=== PATIENT | female | born 1935 | race Caucasian/White ===

== ENCOUNTER 2019-12-31 11:46 | Inpatient (IN) | payer MEDICARE, OTHER ==
[2019-12-31] MEDS ORDERED: Sodium Chloride 0.9% 1,000 ML IV SCH (12:30)
[2019-12-31] MEDS ORDERED: ceFAZolin 1 GM in Sodium Chloride 0.9% 50 ML IV ONE (13:00)
--- NOTE | 2019-12-31 13:14 | EDM.PDOC ---
ED HPI GENERAL MEDICAL PROBLEM - General Chief Complaint: General Stated Complaint: WOUND, WEAKNESS Time Seen by Provider: 12/31/19 13:05 Source of Information: Reports: Patient History Limitations: Reports: No Limitations - History of Present Illness INITIAL COMMENTS - FREE TEXT/NARRATIVE: chronic ulcer ( 8 months) in the right axilla in patient with history of breast cancer in the last 1 week has started oozing pus and redness surrounding the ulcer is getting worse now has pain in the area has been to see general surgeon , now has been scheduled to have biopsy of the site next week currently wound seems to be infected and painful Onset: Gradual Onset Date: 12/24/19 Duration: Waxing/Waning Location: Reports: Upper Extremity, Right (in right axilla) Quality: Reports: Ache, Dull Severity: Moderate Improves with: Reports: Cold Therapy Worsens with: Reports: Heat Therapy Context: Reports: Other Associated Symptoms: Reports: Loss of Appetite, Malaise - Related Data Allergies Allergy/AdvReac Type Severity Reaction Status Date / Time No Known Allergies Allergy Verified 06/21/18 11:35 Home Meds: Home Meds . [Unable to Verify Home Med List] 12/31/19 [History] ED ROS GENERAL - Review of Systems Review Of Systems: See Below Constitutional: Reports: Fever, Chills, Malaise, Weakness HEENT: Reports: No Symptoms Respiratory: Reports: No Symptoms Cardiovascular: Reports: No Symptoms Endocrine: Reports: No Symptoms GI/Abdominal: Reports: No Symptoms Musculoskeletal: Reports: No Symptoms Skin: Reports: Rash, Wound Neurological: Reports: No Symptoms, Dizziness Psychiatric: Reports: No Symptoms Hematologic/Lymphatic: Reports: No Symptoms ED EXAM, GENERAL - Physical Exam Exam: See Below Exam Limited By: No Limitations General Appearance: Alert, WD/WN, No Apparent Distress Ears: Normal External Exam Nose: Clear Rhinorrhea Throat/Mouth: Normal Oropharynx Head: Atraumatic, Normocephalic Neck: Supple, Non-Tender, Full Range of Motion Respiratory/Chest: Lungs Clear, Normal Breath Sounds, Other (spasm noted in the muscle in the right axilla) Cardiovascular: Normal Peripheral Pulses, Regular Rate, Rhythm, No JVD Back Exam: Full Range of Motion Extremities: Normal Inspection, Arm Pain, Increased Warmth Skin Exam: Lymphangitis, Wound/Incision (in right axilla about [id number] w pus from the wound site and surounding erythema) Course - Orders/Labs/Meds Orders: Active Orders 24 hr Category Date Time Status Sodium Chloride 0.9% [Normal Saline] 1,000 ml Med 12/31/19 12:30 Active IV ASDIRECTED ceFAZolin [Ancef] 1 gm Med 12/31/19 13:00 Active Sodium Chloride 0.9% [Normal Saline] 50 ml IV ONETIME Medication Orders Sodium Chloride (Normal Saline) 1,000 mls @ 999 mls/hr IV ASDIRECTED GUERDA Cefazolin Sodium 1 gm/ Sodium (Chloride) 50 mls @ 200 mls/hr IV ONETIME ONE Stop: 12/31/19 13:14 Labs: Laboratory Tests 12/31/19 12/31/19 12/31/19 Range/Units 12:30 12:30 12:30 WBC 11.7 (4.5-12.0) X10-3/uL RBC 3.67 (3.23-5.20) x10(6)uL Hgb 11.8 (11.5-15.5) g/dL Hct 34.1 (30.0-51.3) % MCV 93.1 (80-96) fL MCH 32.0 (27.7-33.6) pg MCHC 34.4 (32.2-35.4) g/dL RDW 12.7 (11.5-15.5) % Plt Count 291 (125-369) X10(3)uL MPV 7.6 (7.4-10.4) fL Neut % (Auto) 79.2 (46-82) % Lymph % (Auto) 7.2 L (13-37) % Rhea % (Auto) 7.4 (4-12) % Eos % (Auto) 5 (1.0-5.0) % Baso % (Auto) 1 (0-2) % Neut # (Auto) 9.3 H (1.6-8.3) # Lymph # (Auto) 0.8 (0.6-5.0) # Rhea # (Auto) 0.9 (0.0-1.3) # Eos # (Auto) 0.6 (0.0-0.8) # Baso # (Auto) 0.1 (0.0-0.2) # Sodium 137 (135-145) mmol/L Potassium 4.2 (3.5-5.3) mmol/L Chloride 100 (100-110) mmol/L Carbon Dioxide 28 (21-32) mmol/L BUN 17 (7-18) mg/dL Creatinine 0.7 (0.55-1.02) mg/dL Est Cr Clr Drug Dosing TNP Estimated GFR (MDRD) > 60 (>60) BUN/Creatinine Ratio 24.3 H (9-20) Glucose 96 (80-116) mg/dL Calcium 8.4 L (8.6-10.2) mg/dL Total Bilirubin 0.9 (0.1-1.3) mg/dL AST 38 H (5-25) IU/L ALT 35 (12-36) U/L Alkaline Phosphatase 180 H (56-112) IU/L C-Reactive Protein 13.9 H* (0.5-0.9) mg/dL Total Protein 7.3 (6.0-8.0) g/dL Albumin 2.4 L (3.2-4.6) g/dL Globulin 4.9 g/dL Albumin/Globulin Ratio 0.5 Meds: Medications Generic Name Dose Route Start Last Admin Trade Name Freq PRN Reason Stop Dose Admin Sodium Chloride 1,000 mls @ 999 mls/hr 12/31/19 12:30 Normal Saline IV ASDIRECTED [facility] Cefazolin Sodium 1 gm/ Sodium 50 mls @ 200 mls/hr 12/31/19 13:00 Chloride IV 12/31/19 13:14 ONETIME ONE Departure - Departure Time of Disposition: 13:20 Disposition: Admitted As Inpatient 65 Clinical Impression: 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 - Discharge Information *PRESCRIPTION DRUG MONITORING PROGRAM REVIEWED*: Not Applicable *COPY OF PRESCRIPTION DRUG MONITORING REPORT IN PATIENT MADY: Not Applicable Referrals: PCP,None [Primary Care Provider] - - My Orders Last 24 Hours: My Active Orders 12/31/19 12:30 Sodium Chloride 0.9% [Normal Saline] 1,000 ml IV ASDIRECTED 12/31/19 13:00 ceFAZolin [Ancef] 1 gm Sodium Chloride 0.9% [Normal Saline] 50 ml IV ONETIME - Assessment/Plan Last 24 Hours: My Active Orders 12/31/19 12:30 Sodium Chloride 0.9% [Normal Saline] 1,000 ml IV ASDIRECTED 12/31/19 13:00 ceFAZolin [Ancef] 1 gm Sodium Chloride 0.9% [Normal Saline] 50 ml IV ONETIME
[2019-12-31] MEDS ORDERED: Morphine 2 MG/ML Syringe IM ONE (13:20)
[2019-12-31] MEDS ORDERED: ceFAZolin 1 GM Vial IVPUSH ONE (13:30)
[2019-12-31] MEDS ORDERED: Ondansetron 4 MG Tab.DIS PO PRN (14:34)
[2019-12-31] MEDS: Acetaminophen/HYDROcodone 325-5 MG Tab PO PRN ×2 (15:38→20:02)
[2019-12-31] MEDS: Sodium Chloride 0.9% 1,000 ML IV SCH (16:17)
[2019-12-31] MEDS: Morphine 2 MG/ML Syringe IVPUSH PRN (16:22)
[2019-12-31] MEDS ORDERED: fentaNYL 12 MCG/HR Transdermal Patch TRDERM SCH (17:00)
--- NOTE | 2019-12-31 18:01 | HP ---
ADMISSION DATE: 12/31/2019 CHIEF COMPLAINT: Axillary pain and infection. HISTORY OF PRESENT ILLNESS: Kiarra is an 84-year-old woman from [place] with a history of breast mastectomy on the right side in 1981. This was followed with radiation treatment and chemotherapy and eventually healed up and she did very well. Ever since that time, she has had occasional twinges of pain that are sometimes pleuritic in nature, but never that bothersome. For the past few weeks, however, she has had soreness in the anterior chest. She was in to her doctor at [facility] and referrals made. She saw Dr. Fallon, who sent her up to the Wound [facility] in [place], who sent her to Dr. Gutierrez, who then sent her in to Radiology for upcoming CT-guided needle biopsy. This is scheduled for 9 a.m. Tuesday. This is apparently going to be of a suspicious mass in the right lung. CT of the chest also showed destruction of a rib and much soft tissue swelling and deformity in the area of the sore on the right anterior axillary area. She has a lot of pain in the upper area when she moves, takes a deep breath, etc. PAST MEDICAL HISTORY: She is status post appendectomy, T and A. She is one, para one, with normal deliveries. She has she has never had jaundice, hepatitis, or blood transfusions. She had a coronary stent in 1998 that was a dramatic episode requiring resuscitation and a [facility] from [place] to [place] where she had immediate one vessel angioplasty with stent placement. She has subsequently done well from a cardiac standpoint, but over the past year, she has developed more dyspnea on exertion and she was hospitalized in [facility] in September 2019 for shortness of breath and subsequently has been referred to Cardiology for followup. The patient also has a history of a compression fracture in the summer of 2018, and she has chronic neck pain. She has had hyperlipidemia, chronic allergic rhinitis, osteoporosis, and hypertension. MEDICATIONS: 1. Aspirin 325 mg daily. 2. Lipitor 10 mg at bedtime. 3. Vitamin D 25 mcg daily. 4. Clobetasol cream p.r.n. 5. Flonase p.r.n. 6. Boniva 150 mg every month. 7. Ibuprofen p.r.n. 8. Claritin 10 mg daily. 9. Lorazepam 0.5 mg t.i.d. p.r.n. 10.Metoprolol 25 mg b.i.d. 11.Tramadol 50 mg every 6 hours p.r.n. ALLERGIES: Zetia caused heartburn. Prednisone caused nausea. HABITS: Nonsmoker, nondrinker. FAMILY HISTORY: The patient was in 2005. She and her ranched at [place], [place], for 30 years. She was born in [place]. Six years ago, she was convinced by her son to move to [place] to be near him in [place]. He subsequently was transferred with his job to [facility] and she resides at [address] [place] [address], [address]. REVIEW OF SYSTEMS: GENERAL: No seizures, syncope, or recent significant weight change. SKIN: Positive for the sore on the right anterior axillary area. No other rash is noted. HEENT: No recent change in hearing, although she says she has significant hearing loss. Vision is stable. She wears glasses. No sore throat. RESPIRATORY: No significant cough or dyspnea. No exertional-type chest pain or palpitations. GASTROINTESTINAL: No abdominal pain, nausea, or diarrhea. GENITOURINARY: No hematuria. MUSCULOSKELETAL: She does get occasional swelling of her feet and ankles. PHYSICAL EXAMINATION: GENERAL: She is alert and a good historian. She does wince with pain with respirations on movement. VITAL SIGNS: Blood pressure 169/54, pulse 90 and regular, respirations 18, O2 saturation 93% on room air, weight 126 pounds, temperature 99.1. SKIN: Shows an irregular bilobed 2 x 4 cm area of ulceration anterior axillary area. There is significantly thickened skin around this out to about a 6-8 cm radius with tenderness throughout and tenderness to the chest wall all about this area. Left side is normal. She is status post mastectomy with no residual mass noted on the right side. HEENT: Shows pupils equal, and reactive. Oropharynx is clear. Mouth dry. LUNGS: Clear to the bases. HEART: Regular without murmur or gallop. ABDOMEN: Soft and nontender. EXTREMITIES: Show 1+ edema at the posterior malleoli. Intact dorsalis pedis pulses. Motor exam is symmetric with the exception of limited movement of her right arm because of pain. LABORATORY: White count 36[address], hemoglobin 11.8, BUN 17, creatinine 0.7. Alkaline phosphatase 180, CRP 13.9. Urinalysis; 5-10 red cells, no white cells. Review of the CT scan revealed a mass in the right lung with pleural-based densities consistent with primary or metastatic disease and an inflamed area of soft tissue skin with rib destruction, right upper anterior chest. ASSESSMENT: An 84-year-old woman with: 1. Painful open ulceration right anterior axillary area with adjacent rib destruction consistent with metastatic disease. 2. Multiple pleural-based right-sided lung nodules, now scheduled for biopsy in 2 days. 3. Remote history of breast cancer with mastectomy, radiation, and chemo in 1981. 4. Mild chronic congestive heart failure. 5. Arteriosclerotic heart disease with history of emergent angioplasty of a single vessel in 1998. 6. Osteoporosis with history of compression fracture. 7. Chronic neck pain consistent with osteoarthritis. PLAN: Culture is taken of the axillary wound. She is started on IV Ancef. We will provide pain control for her and plan to assist her in keeping her appointment for needle biopsy in [place], Tuesday. We will continue to provide palliative care measures for her underlying likely metastatic disease. /[id number] MACK/ELOY
[2019-12-31] MEDS ORDERED: ceFAZolin 1 GM in Sodium Chloride 0.9% 50 ML IV SCH (20:00)
[2019-12-31] MEDS: ceFAZolin 1 GM Vial IVPUSH SCH (21:39)
[2020-01-01] MEDS: Acetaminophen/HYDROcodone 325-5 MG Tab PO PRN ×5 (00:13→16:28)
[2020-01-01] MEDS: Sodium Chloride 0.9% 1,000 ML IV SCH ×2 (04:32→17:42)
[2020-01-01] MEDS: ceFAZolin 1 GM Vial IVPUSH SCH (06:00)
[2020-01-01] MEDS: Morphine 2 MG/ML Syringe IVPUSH PRN (08:37)
[2020-01-01] MEDS ORDERED: Morphine 2 MG/ML Syringe IVPUSH PRN (10:07)
[2020-01-01] MEDS ORDERED: fentaNYL 25 MCG/HR Transdermal Patch TRDERM SCH (10:15)
--- NOTE | 2020-01-01 12:33 | PN ---
DATE SEEN: 12/31/2019 HISTORY: Ms. Salinas is an 84-year-old woman with a remote history of mastectomy, radiation, and chemo for breast cancer back in 1981. She has developed a sore on her right anterior chest approximately 8 months ago that has never healed in spite of outpatient antibiotics. She has been evaluated at the wound clinic, been seen by Dr. Gutierrez in [place], and now is set up for a CT needle biopsy of the underlying abnormal rib tomorrow morning. The patient has had poor pain control. She is on a Duragesic 12 patch, hydrocodone 325/5 every 4 hours p.r.n. pain, and IV morphine 1 mg IV every 2 hours p.r.n. push. In spite of this, she has had continued significant pain. She also has a poor appetite. She is not having fever, chills, sweats, or symptoms of systemic infection. PHYSICAL EXAMINATION: GENERAL: She is pale and winces with movement. LUNGS: Lungs heard anteriorly, have clear breath sounds. HEART: Regular without murmur or gallop. There is erythema, induration, and tenderness at the site of her right anterior chest wound near the anterior axillary line. There is purulent drainage from this. ABDOMEN: Normal bowel sounds. Soft and nontender. EXTREMITIES: Show no edema. ASSESSMENT: 1. Draining wound, anterior axillary line with underlying rib abnormality, worrisome for metastatic disease. 2. Pleural-based nodules of the lung, also worrisome for metastatic disease. 3. Chronic essential hypertension. PLAN: We will increase her pain medications and try to get this under control. We will try to make her appointment tomorrow for the biopsy and if not able, try and delay it for a couple of days. We will follow for palliative care measures as well. /[id number] MACK/ELOY
[2020-01-01] MEDS: Metoprolol Tartrate 25 MG Tab PO SCH (20:32)
--- NOTE | 2020-01-02 09:45 | PN ---
DATE SEEN: 01/02/2020 HISTORY: Kiarra is an 84-year-old, admitted with a draining wound in her right upper anterior chest that has been there for 8 months, severe right rib pain and weakness. On admission, her wound was cultured. Reports have come back as gram- positive cocci. She was given a dose of IV Ancef in the emergency room. She was admitted to the floor and IV fluids were used for hydration. Her metoprolol was continued, and for pain control, she was given morphine IV, hydrocodone orally, and a Duragesic 12 patch applied. After 36 hours, the pain control was still not adequate and her patch was increased to the 25 mcg patch and her hydrocodone was increased to 2 tablets every 4 hours. She achieved a greater degree of pain control with this. She is scheduled for a CT-guided needle biopsy of the chest and rib mass this morning. She states that she slept well overnight, but is having some pain this morning. PHYSICAL EXAMINATION: VITAL SIGNS: Blood pressure 149/75, pulse 85 and regular, respirations 14, O2 saturation 91% on room air, temperature 99. NEUROLOGIC: Motor exam is symmetric but she limits the use of her right arm because of right-sided chest pain. She is awake, alert, and was able to get up and walk. ASSESSMENT: 1. Chronic ulcer, right anterior chest, now 8 months with underlying rib destruction consistent with metastatic cancer. 2. Subpleural nodules consistent with metastatic lung cancer. 3. Pain control. 4. Hypertension. PLAN: Following her biopsy, we will resume IV antibiotics and continue pain management. /[id number] RO/MODL
[2020-01-02] MEDS ORDERED: ceFAZolin 1 GM Vial IVPUSH SCH (14:00)
[2020-01-02] MEDS: Metoprolol Tartrate 25 MG Tab PO SCH ×2 (17:15→20:15)
[2020-01-02] MEDS ORDERED: Sodium Chloride 0.9% 10 ML Syringe FLUSH PRN (17:16)
[2020-01-02] MEDS ORDERED: oxyCODONE 5 MG Tab PO PRN (17:43)
[2020-01-02] MEDS: Sodium Chloride 0.9% 1,000 ML IV SCH (18:24)
[2020-01-03] MEDS: ceFAZolin 1 GM Vial IVPUSH SCH ×2 (01:09→08:18)
--- NOTE | 2020-01-04 05:02 | DISCH ---
DISCHARGE DATE: 01/03/2020 PRIMARY FINAL DIAGNOSES: 1. Draining ulcer, right anterior chest with rib abnormalities suspicious for metastatic disease. 2. Multiple pleural-based lung nodules worrisome for metastatic disease. 3. Remote history of breast cancer. 4. Chronic essential hypertension. 5. Severe pain. OPERATIONS: The patient underwent CT-guided needle biopsy at [facility] during this admission. SUMMARY: Ms. Salinas is an 84-year-old woman who was admitted because of draining wound on her anterior chest that had been present for eight months and worsening, accompanied by severe right rib area pain. On admission, the wound was cultured and came back with methicillin sensitive Staph aureus. She had been initially started on IV cefazolin and this was held 48 hours prior to her biopsy and resumed post biopsy. Pain medications instituted including Duragesic patch, IV morphine, oral hydrocodone, and ultimately oral oxycodone. She began to gain some control of her pain. She remained quite weak, however, and by 01/03/2020, she was deemed strong enough for discharge to swing bed. She is discharged in stable condition. MEDICATIONS: To continue medications as follows: 1. Oxycodone 1 every 4 hours p.r.n. for pain. 2. Zofran 4 mg every 4 hours p.r.n. for nausea. 3. Morphine 2 mg IV every 2 hours p.r.n. for pain. 4. Metoprolol Tartrate 25 mg b.i.d. 5. Duragesic 25 patch one every 72 hours. 6. Senna S one b.i.d. p.r.n. 7. Ancef 1 g IV every 8 hours. PLAN: She will expect to have results of her biopsy in 3 to 5 days and arrangements will be made for steady therapy recuperation with hopes that she returns to home following her swing bed stay. /[id number] MACK/ELOY
== END 2020-01-03 08:29 | disposition swing bed (61) | DRG 543 ==
LOC: FB.ED 11:46 → FB.MS 14:34 → UNDOADMIN 14:49 → FB.MS 14:49
PROVIDERS: ADMIT Family Medicine; ATTEND Family Medicine
DX: C79.51 Secondary malignant neoplasm of bone (principal); C78.01 Secondary malignant neoplasm of right lung; L98.494 Non-pressure chronic ulcer of skin of other sites with necrosis of bone; R91.8 Other nonspecific abnormal finding of lung field; I50.9 Heart failure, unspecified; I25.10 Atherosclerotic heart disease of native coronary artery without angina pectoris; G89.29 Other chronic pain; M54.2 Cervicalgia; M19.90 Unspecified osteoarthritis, unspecified site; E78.5 Hyperlipidemia, unspecified; J30.9 Allergic rhinitis, unspecified; I11.0 Hypertensive heart disease with heart failure; Z90.49 Acquired absence of other specified parts of digestive tract; Z95.5 Presence of coronary angioplasty implant and graft; Z87.310 Personal history of (healed) osteoporosis fracture; Z85.3 Personal history of malignant neoplasm of breast; Z88.8 Allergy status to other drugs, medicaments and biological substances; Z79.899 Other long term (current) drug therapy; Z79.82 Long term (current) use of aspirin; Z90.11 Acquired absence of right breast and nipple
CPT/HCPCS: 36415; 80053; 83880; 85025; 86140; 96361; 96374; 99284; J0690; J7030; 81001; 85651; 87070; 87077; 87186; 87205; A9270-GY; J2270

== ENCOUNTER 2020-01-03 08:30 | Inpatient (IN) | payer MEDICARE, OTHER ==
[2020-01-03] MEDS ORDERED: Morphine 2 MG/ML Syringe IVPUSH PRN ×2 (09:03→09:11)
[2020-01-03] MEDS ORDERED: Ondansetron 4 MG Tab.DIS PO PRN ×2 (09:03→09:11)
[2020-01-03] MEDS ORDERED: Sodium Chloride 0.9% 10 ML Syringe FLUSH PRN (09:11)
[2020-01-03] MEDS: oxyCODONE 5 MG Tab PO PRN ×3 (10:09→15:35)
--- NOTE | 2020-01-03 13:24 | HP ---
ADMISSION DATE: 01/03/2020 HISTORY: Mrs. Salinas is an 84-year-old woman who has had a draining lesion on her right anterior chest for 8 months. Along with this she has had increasing pain and weakness such that she was admitted from the emergency room to acute care on 12/31/2019. Culture of the wound was done showing methicillin-sensitive Staphylococcus aureus. She was given IV Ancef in the emergency room. Her antibiotics were held for 48 hours and she underwent CT-guided needle biopsy of the right chest lesion. She is now admitted to [facility] for pain control and further care. PAST MEDICAL HISTORY: She has had a history of breast cancer with right mastectomy, radiation and chemotherapy back in 1981. Along with the sore in her chest that developed 8 months ago, she has had increasing pain in the right chest. She had a coronary artery stent in 1998 in [place]. She has had hypertension. She has had osteoporosis with a compression fracture. She has chronic neck pain, hyperlipidemia, osteoporosis, chronic allergic rhinitis. She is status post appendectomy, T and A. 1, para 1. MEDICATIONS: 1. Oxycodone 5 mg every 4 hours p.r.n. pain. 2. Zofran 4 mg every 4 hours p.r.n. nausea. 3. Morphine 2 mg IV every 2 hours p.r.n. pain. 4. Toprol-XL 25 one tab b.i.d. 5. Duragesic 25 one patch every 72 hours. 6. Senokot-S 1 tab b.i.d. 7. Ancef 1 g IV every 8 hours. ALLERGIES: None known. HABITS: Nonsmoker and nondrinker. FAMILY AND SOCIAL HISTORY: The patient has 1 son who lives in [facility], but is staying here with her while she recuperates. REVIEW OF SYSTEMS: GENERAL: No seizure or syncope. No recent fever or chills. She has severe chest pain that is pleuritic in nature. No dyspnea. No abdominal pain, nausea, diarrhea, swelling, or skin rash. PHYSICAL EXAMINATION: GENERAL: She is alert and comfortable. VITAL SIGNS: Blood pressure 153/75, pulse 85 and regular, respirations 18, O2 saturation 90% on room air, temperature 98.2, weight 129 pounds. HEENT: Show clear TMs. Mouth is dry. SKIN: Anicteric, warm, dry without rash. She has erythema and induration of the skin as well as a bilobed 3 x 5 cm wound with white discharge in right anterior axillary chest area. LUNGS: Clear to the bases. HEART: Regular without murmur or gallop. ABDOMEN: Soft and nontender. EXTREMITIES: Show no edema. LABORATORY DATA: White count 10,200, hemoglobin 10.8. Electrolytes normal. Creatinine 0.6, AST 34, alkaline phosphatase 156. CRP in acute care 13.9. ProBNP 1523. CT of the chest showed an area of ulceration, induration of the skin, contiguous with rib deformity in right upper chest along with multiple subpleural lung nodules. ASSESSMENT: 1. Draining wound, right anterior chest adjacent to rib deformity, worrisome for metastatic disease, now status post needle biopsy yesterday. 2. Multiple pleural nodules. 3. Osteoporosis with history of compression fracture. 4. Arteriosclerotic heart disease with history of angioplasty with stents. 5. Chronic essential hypertension. 6. Pain control. 7. Palliative care. PLAN: We will continue to provide pain control measures with new therapy assessments for needs post discharge and await her biopsy results. I will also continue Ancef IV for staphylococcal infection in the chest. Consideration will be given for discharge planning needs as well. /[id number] RO/MODL
[2020-01-03] MEDS ORDERED: ceFAZolin 1 GM Vial IVPUSH SCH (16:00)
[2020-01-03] MEDS: Cephalexin 500 MG Cap PO SCH (20:02)
[2020-01-03] MEDS: Metoprolol Tartrate 25 MG Tab PO SCH (20:02)
[2020-01-04] MEDS: oxyCODONE 5 MG Tab PO PRN ×3 (05:29→16:26)
[2020-01-04] MEDS: Cephalexin 500 MG Cap PO SCH ×2 (08:36→20:40)
[2020-01-04] MEDS: Metoprolol Tartrate 25 MG Tab PO SCH ×2 (08:36→20:40)
--- NOTE | 2020-01-04 14:42 | PN ---
DATE SEEN: 01/04/2020 SUBJECTIVE: Kiarra Salinas is an 84-year-old female, admitted to swing bed on 01/03/2020. She has had a kind of roundabout way of intervention. Had a complicated wound in her right anterior chest. Bigromous Staph aureus, methicillin and cephalosporin sensitive. IV access was problematic. Had a CT-guided needle biopsy of right chest wall which pathology returned as cancer today. Her stay has been otherwise uneventful. Pain control is our primary focus. She is presently on cephalexin just 500 t.i.d. to 500 b.i.d., MS Contin, p.r.n. for pain, oxycodone 10 mg q.4 hours p.r.n. for pain. PHYSICAL EXAMINATION: VITAL SIGNS: 155/76, 22 is her respirations, 92% on 2 L. GENERAL: Appears comfortable. Speech was fluent. NECK: Benign. Thyroid small. CHEST: Clear in all lung parekh. HEART: No ectopy or murmur. CHEST: Right anterior chest wall, noted previous mastectomy site, erythematous indurated skin, about a 4 x 4 cm wound with white discharge in right anterior chest wall. ABDOMEN: Benign. EXTREMITIES: Without edema. ASSESSMENT: 1. Complicated chest wall injury. 2. Underlying lung cancer. PLAN: Medications, care and treatment appropriate. We will adjust dose of pain medications accordingly. Intervention pending clinical discussion. /[id number] UMA/ELOY
[2020-01-04] MEDS: fentaNYL 25 MCG/HR Transdermal Patch TRDERM SCH (16:14)
[2020-01-04] MEDS ORDERED: diphenhydrAMINE 25 MG Cap PO PRN (18:43)
--- NOTE | 2020-01-04 18:51 | PCM.SN ---
- Free Text/Narrative Note: SUBJECTIVE: I was called the nursing staff to see the patient for rash under her left breast and along her left flank. Reportedly it was just a light rash this morning and it has progressively worsened through the day. The patient reports that it is burning and itching. She has had no fevers. No chills. No nausea or vomiting. No new medications. No new exposures known. PE: Awake, alert and appropriate. Vital signs reviewed and are normal. There is a maculopapular rash under her left breast that appears to be intertriginous. There is also a macular, erythematous rash that is along her left flank. It is not raised and I am unsure of the etiology of this rash. There is no increased warmth. Fluctuant area. ASSESSMENT: Intertrigo Rash of unclear etiology PLAN: I will have the nursing staff apply Chlortrimazole cream and hydrocortisone cream to the area under her breast 3 times a day. I will also prescribe Benadryl 25 mg every 6 hours when necessary itching. I will also have the nursing staff have Dr. Beavers take a look at the rash the morning.
[2020-01-04] MEDS: Hydrocortisone 2.5% Crm 30 GM Tube TOP SCH (20:36)
[2020-01-04] MEDS: Clotrimazole 1% Crm 15 GM Tube TOP SCH (20:38)
[2020-01-05] MEDS: oxyCODONE 5 MG Tab PO PRN ×4 (07:32→21:46)
[2020-01-05] MEDS: Metoprolol Tartrate 25 MG Tab PO SCH ×2 (08:23→21:20)
[2020-01-05] MEDS: Cephalexin 500 MG Cap PO SCH ×2 (08:23→21:19)
[2020-01-05] MEDS: Hydrocortisone 2.5% Crm 30 GM Tube TOP SCH ×3 (08:24→21:18)
[2020-01-05] MEDS: Clotrimazole 1% Crm 15 GM Tube TOP SCH ×3 (08:26→21:19)
--- NOTE | 2020-01-05 12:21 | PN ---
DATE SEEN: 01/05/2020 SUBJECTIVE: Kiarra Salinas is an 84-year-old female, swing bed stay. Has a complicated ulcer left upper chest wall, and recently confirmed lung biopsy, lung cancer. Doing reasonably well. Living situation problematic, likely will need some assisted living. Doing well in terms of pain control. Presently on oxycodone 10 mg p.o. q.4 hours pain control. Doing well in that regard. OBJECTIVE: VITAL SIGNS: 141/69, 93 is the mean; heart rate 77; 90 on room air. GENERAL: Appears comfortable. NECK: Benign. Thyroid small. CHEST: Decreased breath sounds, right lower lung field. Wound was dressed with dressing. No obvious external changes. HEART: Regular with occasional ectopy. ABDOMEN: Benign. ASSESSMENT: Complicated disability, weakness, new diagnosis of lung cancer, open sore right chest. PLAN: Present medications, care and treatment appropriate, Residential stay or other assisted living upcoming and planned. /[id number] UMA/ELOY
[2020-01-06] MEDS: Hydrocortisone 2.5% Crm 30 GM Tube TOP SCH ×3 (09:07→20:25)
[2020-01-06] MEDS: Clotrimazole 1% Crm 15 GM Tube TOP SCH ×3 (09:08→20:26)
[2020-01-06] MEDS: Cephalexin 500 MG Cap PO SCH ×2 (09:09→20:27)
[2020-01-06] MEDS: oxyCODONE 5 MG Tab PO PRN ×3 (09:09→21:09)
[2020-01-06] MEDS: Metoprolol Tartrate 25 MG Tab PO SCH ×2 (09:14→20:28)
--- NOTE | 2020-01-06 12:17 | PN ---
DATE SEEN: 01/06/2020 SUBJECTIVE: Kiarra Salinas is an 84-year-old female admitted to swing bed. Had a complicated draining lesion at right anterior chest wall, 8 months' duration. Was placed on antibiotics. Was found to have staph sensitive to cephalosporins. In the interim, a biopsy was obtained from the site, infectious, inflammatory, no cancer. It should be noted had previous breast cancer in 1981. Lung lesion was noted, identified. Biopsy revealed adenocarcinoma of the lung. Our plans at least intermittently are to provide no intervention for the cancer and now 84 years of age. The wound clinic at [facility] has upcoming plans for the lesion at hand. Otherwise, doing better. Pain appears to be controlled. PHYSICAL EXAMINATION: VITAL SIGNS: 154/68, 88, 16, 36.9, 90%. GENERAL: Appears comfortable. Family in attendance. NECK: Benign. Thyroid small. CHEST: Clear in all lung parekh. HEART: No ectopy or murmur. Chest exam revealed absent left breast, and a draining lesion, right anterior wall. ASSESSMENT: 1. Complicated right anterior wall lesion. 2. New diagnosis of right lung cancer. PLAN: Planned discharge upcoming, has some cardiac visits planned, Wound Care Clinic intervention and care. Lung cancer treatment under consideration, Oncology to be involved, [facility]/[place]. /[id number] UMA/ELOY
[2020-01-07] MEDS: oxyCODONE 5 MG Tab PO PRN ×3 (06:38→21:50)
[2020-01-07] MEDS: Metoprolol Tartrate 25 MG Tab PO SCH ×2 (08:57→20:10)
[2020-01-07] MEDS: Cephalexin 500 MG Cap PO SCH (08:58)
[2020-01-07] MEDS: Hydrocortisone 2.5% Crm 30 GM Tube TOP SCH ×3 (08:58→20:08)
[2020-01-07] MEDS: Clotrimazole 1% Crm 15 GM Tube TOP SCH (08:59)
--- NOTE | 2020-01-07 11:21 | PN ---
DATE SEEN: 01/07/2020 SUBJECTIVE: Kiarra Salinas is an 84-year-old female admitted for initially post hospital stay. She has a problematic and nonhealing wound in right upper chest. Culture positive for staph, pathology inflammatory. An accompanying right lung mass was appreciated. Biopsy revealed adenocarcinoma. Living situation, weakness, and well being under review. PHYSICAL EXAMINATION: VITAL SIGNS: 58 kg, 148/60, 80, 95%, 1 L. GENERAL: Appears comfortable. Little bit distant. HEENT: Mouth and oropharynx clear. NECK: Benign. Thyroid small. CHEST: Decreased breath sounds, but good air exchange. HEART: Distant heart sounds. Soft murmur. Occasional ectopy. EXTREMITIES: Wound was dressed. ASSESSMENT: 1. Complicated right chest wall wound, infection resolving. 2. New diagnosis of lung cancer. PLAN: Swing bed at present. Discharge planning under consideration. Pain control present. /[id number] UMA/ELOY
[2020-01-07] MEDS: fentaNYL 25 MCG/HR Transdermal Patch TRDERM SCH (13:00)
[2020-01-07] MEDS: Clotrimazole 1% Crm 30 GM Tube TOP SCH ×2 (15:15→20:12)
[2020-01-08] MEDS: Metoprolol Tartrate 25 MG Tab PO SCH ×2 (08:36→21:03)
[2020-01-08] MEDS: Hydrocortisone 2.5% Crm 30 GM Tube TOP SCH ×3 (08:40→21:03)
[2020-01-08] MEDS: Clotrimazole 1% Crm 30 GM Tube TOP SCH ×3 (08:40→21:04)
[2020-01-08] MEDS: oxyCODONE 5 MG Tab PO PRN (09:23)
--- NOTE | 2020-01-08 13:49 | PN ---
DATE SEEN: 01/08/2020 SUBJECTIVE: Kiarra Salinas is a delightful 84-year-old female, seen today for review. Complicated upper right chest wound, under surveillance and consideration of treatment. Recent diagnosis of biopsy-proven lung cancer. Support services in place. Planning strong consideration to go to [facility]. Briseida Pool [facility] provider of record. We stopped her cephalexin after 7 days' duration. LABORATORY STUDIES: None pending. OBJECTIVE: VITAL SIGNS: 36.7, 88, 147/66, 16, 88 on 1 L. GENERAL: Appears comfortable. Speech was fluent. Conduct appropriate. NECK: Benign. Thyroid small. No JVD. CHEST: Decreased breath sounds but clear throughout in all lung parekh. HEART: Distant heart sounds. Soft murmur. ABDOMEN: Benign. SKIN: Lesion, right chest wall, covered. Left chest wall, ulcerative lesion. ASSESSMENT: New diagnosis of lung cancer, remote diagnosis of breast cancer. PLAN: Supportive measures in place, planned discharge upcoming. /[id number] /ELOY
[2020-01-09] MEDS: oxyCODONE 5 MG Tab PO PRN ×2 (08:54→14:18)
[2020-01-09] MEDS: Clotrimazole 1% Crm 30 GM Tube TOP SCH ×3 (08:55→21:02)
[2020-01-09] MEDS: Hydrocortisone 2.5% Crm 30 GM Tube TOP SCH ×3 (08:56→21:01)
[2020-01-09] MEDS: Metoprolol Tartrate 25 MG Tab PO SCH ×2 (08:57→21:01)
[2020-01-09] MEDS: predniSONE 20 MG Tab PO SCH (10:30)
--- NOTE | 2020-01-09 11:51 | PN ---
DATE SEEN: 01/09/2020 SUBJECTIVE: Kiarra Salinas is an 84-year-old, female, admitted for a post hospital followup. Draining lesion in right anterior chest, increasing pain. Admitted to swing bed on 01/03. Biopsy of the chest wall lesion benign. Infection was present. Cephalexin course of therapy. Lesion in right lung, cancerous. She has had remote breast cancer back in the . Doing well. Planning discharge. MEDICATIONS: Reviewed and appropriate. 1. Duragesic patch. 2. Oxycodone. 3. Prednisone will be added. PHYSICAL EXAMINATION: VITAL SIGNS: 36.5, 73, 155/71, 95% on 1 L. GENERAL: Appears comfortable. NECK: Benign. Thyroid small. CHEST: Decreased breath sounds but pretty clear throughout in all lung parekh. HEART: Distant heart sounds. Soft murmur. ABDOMEN: Benign. Wound unchanged. ASSESSMENT: 1. Right upper chest wound. 2. New diagnosis of lung cancer. PLAN: Medications, care and treatment appropriate. Hospice involved. Discharge planning in place. /[id number] /ELOY
[2020-01-10] MEDS: Metoprolol Tartrate 25 MG Tab PO SCH ×2 (10:20→21:02)
[2020-01-10] MEDS: predniSONE 20 MG Tab PO SCH (10:20)
[2020-01-10] MEDS: Hydrocortisone 2.5% Crm 30 GM Tube TOP SCH ×3 (10:28→21:00)
[2020-01-10] MEDS: Clotrimazole 1% Crm 30 GM Tube TOP SCH ×3 (10:28→20:58)
--- NOTE | 2020-01-10 10:47 | PN ---
DATE SEEN: 01/10/2020 SUBJECTIVE: Kiarra Salinas is a young lady, 84 years of age. History of remote breast cancer, recent biopsy-proven right lung cancer, and a nonhealing, infected but clearing right anterior chest wall ulcer. Completed course of antibiotics. Supplemental O2 required. Otherwise doing well. Alka Barbosa, EVELYN, [facility], provider of record. MEDICATIONS: Reviewed and appropriate. PHYSICAL EXAMINATION: VITAL SIGNS: 143/52, 95% on 1 L per nasal cannula, respirations 18, pulse 78. GENERAL: Appeared comfortable. In good spirits. NECK: Benign. Thyroid small. CHEST: Clear in all lung parekh. HEART: No ectopy or murmur. ABDOMEN: Benign. ASSESSMENT: 1. Right lung lesion. 2. Wound healing. 3. Supplemental O2. PLAN: Discharge to [facility] planned on 01/11/2020. /[id number] UMA/ELOY
[2020-01-10] MEDS: oxyCODONE 5 MG Tab PO PRN ×2 (12:13→21:00)
[2020-01-10] MEDS: fentaNYL 25 MCG/HR Transdermal Patch TRDERM SCH (12:47)
--- NOTE | 2020-01-10 18:45 | CR ---
INDICATION: Right lung mass followup. CHEST, TWO VIEWS: PA and lateral views of the chest 01/10/20 were compared with 03/22/11 and 09/12/13. The irregular nodular mass in the right lower middle lateral lung field is less well defined on the current study raising question of successful therapy. There is, however, noted a moderately large right pleural effusion at this time. Decreased bone density is noted compatible with osteoporosis. A dextroconcave scoliosis of the thoracolumbar spine is noted. The heart appears enlarged to a mild degree. The aorta is calcified in the arch area and somewhat tortuous. IMPRESSION: 1. Nodular mass in the right lower middle lung field laterally is less well defined raising question of successful therapy with involution of neoplasm. 2. New pleural effusion noted on the right, moderately large. 3. ASHD. 4. Osteoporosis and scoliosis. MTDD
[2020-01-11] MEDS: Hydrocortisone 2.5% Crm 30 GM Tube TOP SCH (08:00)
[2020-01-11] MEDS: Metoprolol Tartrate 25 MG Tab PO SCH (08:00)
[2020-01-11] MEDS: Clotrimazole 1% Crm 30 GM Tube TOP SCH (08:01)
[2020-01-11] MEDS: oxyCODONE 5 MG Tab PO PRN (09:29)
--- NOTE | 2020-01-11 11:13 | DISCH ---
DISCHARGE DATE: 01/11/2020 REASON FOR ADMISSION: 1. Pain control. 2. Nonhealing wound ulcer of the chest. 3. Metastatic lung cancer. 4. Palliative care. 5. Compression fractures, chronic. 6. Coronary artery disease. 7. Hypertension. DISCHARGE DIAGNOSES: 1. Pain control. 2. Nonhealing wound ulcer of the chest. 3. Metastatic lung cancer. 4. Palliative care. 5. Compression fractures, chronic. 6. Coronary artery disease. 7. Hypertension. BRIEF HISTORY: This is an 84-year-old female, who was admitted with nonhealing wound ulcer on the chest. A biopsy since has revealed metastatic lung cancer. She is now on palliative care and going to be discharged to hospice. Pain control is currently on Duragesic and oxycodone, which we will continue. I spent more than 35 minutes in the discharge of the patient. /[id number] EMILIA/ELOY
== END 2020-01-11 10:25 | disposition home health service (06) | DRG 313 ==
LOC: FB.MS 08:30
PROVIDERS: ADMIT Family Medicine; ATTEND Family Medicine
DX: R07.89 Other chest pain (principal); C78.01 Secondary malignant neoplasm of right lung; I10 Essential (primary) hypertension; M81.0 Age-related osteoporosis without current pathological fracture; M54.2 Cervicalgia; G89.29 Other chronic pain; E78.5 Hyperlipidemia, unspecified; R91.8 Other nonspecific abnormal finding of lung field; I25.10 Atherosclerotic heart disease of native coronary artery without angina pectoris; Z51.5 Encounter for palliative care; L30.4 Erythema intertrigo; Z99.81 Dependence on supplemental oxygen; Z95.5 Presence of coronary angioplasty implant and graft; Z90.49 Acquired absence of other specified parts of digestive tract; Z79.899 Other long term (current) drug therapy; Z85.3 Personal history of malignant neoplasm of breast; S21.001D Unspecified open wound of right breast, subsequent encounter; Z90.11 Acquired absence of right breast and nipple; Z95.818 Presence of other cardiac implants and grafts; X58.XXXD Exposure to other specified factors, subsequent encounter
CPT/HCPCS: 71046; 94760; 94762; 97110-GP; 97116-GP; 97161-GP; 97165-GO; 97530-GO; 97530-GP; 97535-GO; A9270-GY